=== PATIENT | female | born 1960 | race Caucasian/White ===

== ENCOUNTER 2017-02-15 14:44 | Emergency (ER) | payer OTHER ==
[2017-02-15] MEDS ORDERED: PIGGYBACK IV ONE (16:14)
[2017-02-15] MEDS ORDERED: CLINDAMYCIN IV ONE (16:14)
[2017-02-15] MEDS ORDERED: D5W IV ONE (16:14)
--- NOTE | 2017-02-15 16:44 | ER NURSING DOCUMENTATION ---
Nurse's Notes [facility] Name:Becca Martinez Age:56 yrs Sex:Female :1960 Arrival Date:02/15/2017 Time:14:44 Bed3 Private MD: Diagnosis:Facial Cellulitis Presentation: 02/15 14:47 Acuity: SHARYN 3 lc 14:52 Presenting complaint: Patient states: SAW MD ON FRIDAY FOR AN INFECTION TO RIGHT lc NOSTRIL. PLACED ON BACTRIM. REDNESS AND SWELLING GETTING WORSE. Transition of care: Home. Notified ED Physician of patient's arrival and CC. 14:52 Method Of Arrival: Private Vehicle lc Triage Assessment: 14:55 General: Appears in no apparent distress, Behavior is cooperative. Pain: Complains of lc pain in nose Pain At worst was 4 out of 10 on a pain scale. Quality of pain is described as pressure. EENT: Nares on right SWOLLEN AND RED. Neuro: Level of Consciousness is awake, alert, Oriented to person, place, time, event. Respiratory: Airway is patent Respiratory effort is even, unlabored. Derm: Skin is pink, warm & dry. Historical: - Allergies: PENICILLINS; - Home Meds: 1. Estradiol Oral - PMHx: None; - PSHx: Appendectomy; ECTOPIC ; - Tetanus: < 10 years. - Ebola Screening: : Patient denies travel to an Ebola-affected area in the 21 days before illness onset. No symptoms or risks identified at this time. . - Immunization history: Flu Vaccine unknown. - Social history: Smoking status: Patient states was never smoker of tobacco. Screenin:57 Infectious Disease Risk None. Abuse screen: Denies threats or abuse. Denies injuries lc from another. Nutritional screening: No deficits noted. Assessment: 14:57 See Triage Assessment done by same RN. lc Vital Signs: 14:51 BP 138 / 78 RA Sitting (auto/reg); Pulse 98 LA; Resp 14 S; Temp 99.3(O); Pulse Ox 95% em3 on R/A; Weight 51.26 kg (R); Height 5 ft. 2 in. (157.48 cm) (R); Pain 4/10; 16:35 BP 106 / 70; Pulse 76; Resp 16; Pulse Ox 96% on R/A; Pain 3/10; tg 14:51 Body Mass Index 20.67 (51.26 kg, 157.48 cm) em3 ED Course: 14:45 Patient arrived in ED. em3 14:47 Jesica Ray, RN is Primary Nurse. 14:47 Triage completed. 14:51 Valuables Remains with patient Patient has correct armband on for positive em3 identification. Bed in low position. Call light in reach. Side rails up X 1. 14:52 Sterling Watson MD is Attending Physician. tl1 16:09 Inserted peripheral IV: 22 gauge in left hand. lc Administered Medications: 16:09 Drug: Clindamycin 900 mg; Route: IVPB; Infused Over: 30 mins; Site: left hand; lc Delivery: Pump; 16:21 Follow up: IV Status: Completed infusion; IV Intake: 100ml lc Intake: 16:21 IV: 100ml; Total: 100ml. lc Outcome: 16:32 Discharge ordered by . tl1 16:35 Discharged to home ambulatory, with family. tg 16:35 Condition: improved 16:35 Discharge Assessment: Patient awake and alert. 16:35 Discharge Assessment: IV left in and wrapped with gauze per Dr. Watson's instructions 16:35 Instructed on discharge instructions, follow up and referral plans. medication usage, Prescriptions given X 3. 16:43 Patient left the ED. tg 07 12:46 Discharge F/U Call: Unable to reach: left voicemail: Signatures: Porter Gomez RN RN tg Coleman, Linda, RN RN Vern Coppola em3 Sterling Watson MD MD tl1 Lilia Lorenzo
--- NOTE | 2017-02-15 16:44 | ER PHYSICIAN DOCUMENTATION ---
Physician Documentation [facility] Name:Becca Martinez Age:56 yrs Sex:Female :1960 Arrival Date:02/15/2017 Time:14:44 Bed3 Private MD: Sterling Ge Disposition: 02/16 19:20 Chart complete. tl1 Disposition: 02/15/17 16:32 Discharged to Home/Self Care. Impression: Facial Cellulitis. - Condition is Good. - Discharge Instructions: CELLULITIS. - Prescriptions for Clindamycin HCl 150 mg Oral - take 3 capsule by ORAL route every 8 hours for 10 days; 90 capsule. Prospect 5- 325 mg Oral Tablet - take 1 tablet by ORAL route every 6 hours As needed; 6 tablet. Zofran 4 mg Oral - take 1 tablet by ORAL route every 6 hours As needed; 6 tablet. - Medical Reconciliation form form. - Follow up: Emergency Department; When: Tomorrow; Reason: Recheck today's complaints. - Problem is new. - Symptoms are unchanged. HPI: 02/15 14:50 This 56 yrs old Female presents to ER via Private Vehicle with complaints of tl1 Facial Swelling. 14:50 2 days ago she was started on bactrim for an infection that started on her right medial tl1 nostril, and spread to involve her upper lip. since then the swelling and discomfort have worsened. No f/c/s . Historical: - Allergies: PENICILLINS; - Home Meds: 1. Estradiol Oral - PMHx: None; - PSHx: Appendectomy; ECTOPIC ; - Tetanus: < 10 years. - Ebola Screening: : Patient denies travel to an Ebola-affected area in the 21 days before illness onset. No symptoms or risks identified at this time. . - Immunization history: Flu Vaccine unknown. - Social history: Smoking status: Patient states was never smoker of tobacco. ROS: 14:50 ENT: Positive for swollen lip.. tl1 Exam: 14:50 Constitutional: This is a well developed, well nourished patient who is awake, alert, tl1 and in no acute distress. 14:50 Head/face: Noted is no obvious of injury or deformity except swelling, of the of the tl1 right medial nostril and entire right upper lip. There is redness and induration, but no fluctuance.. 14:50 Eyes: Exam is negative for acute changes. 14:50 ENT: Nose: External nose: erythema is noted, swelling is noted. 14:50 Neck: External neck: is normal, ROM/movement: is normal, is supple. 14:50 Cardiovascular: Rate: normal. 14:50 Respiratory: Respirations: normal. 14:50 Neuro: Exam negative for acute changes, Orientation: is normal, Mentation: is normal. Vital Signs: 14:51 BP 138 / 78 RA Sitting (auto/reg); Pulse 98 LA; Resp 14 S; Temp 99.3(O); Pulse Ox 95% em3 on R/A; Weight 51.26 kg (R); Height 5 ft. 2 in. (157.48 cm) (R); Pain 4/10; 16:35 BP 106 / 70; Pulse 76; Resp 16; Pulse Ox 96% on R/A; Pain 3/10; tg 14:51 Body Mass Index 20.67 (51.26 kg, 157.48 cm) em3 MDM: 14:52 Patient medically screened. tl1 15:40 Differential diagnosis: phlegmon vs abscess. Data reviewed: vital signs, nurses notes, tl1 and as a result, I will discharge patient. Special discussion: this seems more like a cellulitis or phlegmon than an abscess at this time. I think the antibiotic coverage needs to be broadened and will add clindamycin as she has a penicillin allergy. Will try to hammer this infection with high dose clinda and see how she is doing in the morning.. Dispensed Medications: 16:09 Drug: Clindamycin 900 mg; Route: IVPB; Infused Over: 30 mins; Site: left hand; lc Delivery: Pump; 16:21 Follow up: IV Status: Completed infusion; IV Intake: 100ml lc Signatures: Porter Gomez RN RN Jesica Ray RN RN lc Leigh, Tom, MD MD tl1
== END 2017-02-15 16:44 | disposition home or self-care (01) ==
LOC: ER 14:44
DX: L03.211 Cellulitis of face (principal)
CPT/HCPCS: 96374; 99283

== ENCOUNTER 2017-02-16 07:05 | Emergency (ER) | payer OTHER ==
[2017-02-16] MEDS ORDERED: PIGGYBACK IV ONE (07:32)
[2017-02-16] MEDS ORDERED: D5W IV ONE (07:32)
[2017-02-16] MEDS ORDERED: CLINDAMYCIN IV ONE (07:32)
--- NOTE | 2017-02-16 08:44 | ER PHYSICIAN DOCUMENTATION ---
Physician Documentation [facility] Name:Becca Martinez Age:56 yrs Sex:Female :1960 Arrival Date:02/16/2017 Time:07:05 Bed2 Private MD: Sterling Ge Disposition: 02/16 08:58 Chart complete. tl1 Disposition: 02/16/17 07:51 Transfer ordered to [facility]. Diagnosis is Facial Abscess and Cellulitis. - Reason for transfer: Higher level of care. - Accepting physician is DR ESPINOZA. - Condition is Good. - Problem is new. - Symptoms are unchanged. COBRA Form completed? Yes Transfer - Mode of Transportation Private Vehicle - Notes: GO TO [facility] NOW TO BE EVALUATED FOR POSSIBLE SURGERY TO DRAIN YOUR POSSIBLE ABSCESS HPI: 07:30 This 56 yrs old Female presents to ER via Private Vehicle with complaints of tl1 Facial Swelling. 07:30 The patient presents with swelling. 3 days ago she was seen for a right nasal/upper lip tl1 cellulitis and treated with bactrim. Yesterday, she was seen in this ED by me for marked swelling and induration of her right upper lip. She was treated with clinda 900 mg IV and given a prescription for 450 mg TID. She returns this morning for a recheck and is no better. She denied f/c/s/n/v.. Historical: - Allergies: PENICILLINS; - Home Meds: 1. Estradiol Oral - PMHx: NONE; Facial Cellulitis (February 15, 2017); - PSHx: APPENDECTOMY; ECTOPIC ; - Tetanus: < 10 years. - Ebola Screening: : Patient denies travel to an Ebola-affected area in the 21 days before illness onset. No symptoms or risks identified at this time. . - Immunization history: Flu Vaccine >1 year. - Social history: Smoking status: Patient states was never smoker of tobacco. ROS: 08:37 ENT: Positive for right upper lip swelling. tl1 08:37 Neck: Negative for pain with movement, pain at rest. 08:37 All other systems are negative. Exam: 07:20 Constitutional: This is a well developed, well nourished patient who is awake, alert, tl1 and in no acute distress. 07:20 Head/Face: Normocephalic, atraumatic. tl1 07:20 Head/face: The medial aspect of her right lower nostril and the entire right upper lip are markedly swollen and indurated, moderately TTP. No fluctuance. 07:20 Eyes: Exam is negative for acute changes. 07:20 ENT: Nose: as above, Mouth: is normal. 07:20 Neck: Exam negative for acute changes. Vital Signs: 07:29 BP 112 / 95; Pulse 73; Resp 16; Temp 98.3; Pulse Ox 95% on R/A; Weight 51.26 kg; Height lc 5 ft. 2 in. (157.48 cm); Pain 2/10; 08:05 Pulse 72; Resp 16; Temp 98.3; Pain 1/10; lc 07:29 Body Mass Index 20.67 (51.26 kg, 157.48 cm) MDM: 07:51 Patient medically screened. tl1 08:00 Differential diagnosis: phlegmon vs abscess. Data reviewed: vital signs, nurses notes, tl1 and as a result, I will *Transfer Patient. Counseling: I had a detailed discussion with the patient and/or guardian regarding: the historical points, exam findings, and any diagnostic results supporting the discharge/admit diagnosis, the need to transfer to another facility. ED course: I told her I suspect an abscess, as a phlegmon would probably be feeling better after 3 days of antibiotics. We do not have ultrasound availability today nor do we have ENT or plastics should this need an I&D, which I strongly suspect it will. I spoke with Dr Espinoaz at [facility] who kindly accepted the patient in transfer by POV for further evaluation and care.. Dispensed Medications: 07:20 Drug: Cleocin 900 mg; Route: IVPB; Infused Over: 30 mins; Site: left wrist; Delivery: lc Pump; 07:58 Follow up: IV Status: Completed infusion; IV Intake: 50ml lc Signatures: Jesica Ray RN RN lc Leigh, Tom, MD MD tl1
--- NOTE | 2017-02-16 08:44 | ER NURSING DOCUMENTATION ---
Nurse's Notes [facility] Name:Becca Martinez Age:56 yrs Sex:Female :1960 Arrival Date:02/16/2017 Time:07:05 Bed2 Private MD: Diagnosis:Facial Abscess and Cellulitis Presentation: 02/16 07:10 Notified ED Physician of patient's arrival and CC. lc 07:13 Acuity: SHARYN 4 lc 07:25 Presenting complaint: Patient states: HERE FOR RE CHECK OF CELLULITIS TO FACE. SWELLING lc NOT IMPROVED, REDNESS DECREASED, IV STILL IN AND FLUSHES WELL. Transition of care: patient was not received from another setting of care. 07:25 Method Of Arrival: Private Vehicle Triage Assessment: 07:27 General: Appears in no apparent distress, Behavior is cooperative. Pain: Complains of lc pain in nose Pain At worst was 2 out of 10 on a pain scale. Quality of pain is described as pressure, throbbing. Neuro: Level of Consciousness is awake, alert, Oriented to person, place, time, event. Derm: Skin is pink, warm & dry. Injury Description: SWELLING UNDER RIGHT NARE, SL PUS DRAINAGE TO NARE. Historical: - Allergies: PENICILLINS; - Home Meds: 1. Estradiol Oral - PMHx: NONE; Facial Cellulitis (February 15, 2017); - PSHx: APPENDECTOMY; ECTOPIC ; - Tetanus: < 10 years. - Ebola Screening: : Patient denies travel to an Ebola-affected area in the 21 days before illness onset. No symptoms or risks identified at this time. . - Immunization history: Flu Vaccine >1 year. - Social history: Smoking status: Patient states was never smoker of tobacco. Screenin:30 Infectious Disease Risk None. Abuse screen: Denies threats or abuse. Denies injuries lc from another. Nutritional screening: No deficits noted. Assessment: 07:30 See Triage Assessment done by same RN. Vital Signs: 07:29 BP 112 / 95; Pulse 73; Resp 16; Temp 98.3; Pulse Ox 95% on R/A; Weight 51.26 kg; Height lc 5 ft. 2 in. (157.48 cm); Pain 2/10; 08:05 Pulse 72; Resp 16; Temp 98.3; Pain 1/10; lc 07:29 Body Mass Index 20.67 (51.26 kg, 157.48 cm) ED Course: 07:11 Patient arrived in ED. ma1 07:13 Jesica Ray RN is Primary Nurse. 07:13 Triage completed. lc 07:30 Valuables Remains with patient Patient has correct armband on for positive lc identification. Bed in low position. Call light in reach. Adult w/ patient. 07:47 Sterling Watson MD is Attending Physician. tl1 07:50 Flushed left forearm hand. lc Administered Medications: 07:20 Drug: Cleocin 900 mg; Route: IVPB; Infused Over: 30 mins; Site: left wrist; Delivery: lc Pump; 07:58 Follow up: IV Status: Completed infusion; IV Intake: 50ml lc Intake: 07:58 IV: 50ml; Total: 50ml. Outcome: 07:51 ER care complete, transfer ordered by . tl1 08:05 Condition: stable lc 08:05 Discharge Assessment: Patient awake, alert and oriented x 3. No cognitive and/or functional deficits noted. Patient verbalized understanding of disposition instructions. 08:05 Discharge instructions given to patient, family, Instructed on discharge instructions, follow up and referral plans. medication usage, Demonstrated understanding of instructions, medications, Prescriptions given X HAS FROM YESTERDAY 08:13 Transferred: Patient will be transferred to: [facility]. Facility Acceptance Time: February 16, 2017 at 07:50 Patient's face sheet was faxed to accepting facility. Face Sheet included patient's name, address, age, gender, contact information and insurance information. Patient will be transported by: Private Vehicle. Nurse and Physician Charting and Notes were sent to Accepting Facility. All tests and/or procedures with results, if applicable, were sent to accepting facility. 08:17 Transferred: Report called to: EVA BROWNLEE 08:44 Patient left the ED. Signatures: Jesica Ray RN RN Sterling Patel MD MD tl1 Claire Mcmullen [facility]
== END 2017-02-16 08:44 | disposition short-term general hospital (02) ==
LOC: ER 07:05
DX: L03.211 Cellulitis of face (principal); L02.01 Cutaneous abscess of face
CPT/HCPCS: 96365; 99285